=== PATIENT | male | born 1960 | race Asian ===

== ENCOUNTER 2018-03-18 18:39 | Emergency (ER) | payer SELFPAY ==
[~2018-03-18] VITALS: Ht 152.4 cm; Wt 61.2 kg
[2018-03-18] MEDS ORDERED: HYDROcodone-ACET 10/325MG TAB PO ONE (21:30)
[2018-03-18] MEDS ORDERED: cefTRIAXone SOD 1,000 MG VL IM ONE (22:00)
[2018-03-18] MEDS ORDERED: TETANUS-DIPTH-ACEL PERTUSSIS 0.5ML SYRG IM ONE (22:00)
[2018-03-18] MEDS ORDERED: BACITRACIN-POLYMYXIN B TOPICAL OINT UD TOP ONE (22:00)
[2018-03-18] MEDS ORDERED: LIDOCAINE 1% HCL (LOCAL ANESTH.) INJ 20ML MDV ONE (22:00)
[2018-03-18] MEDS ORDERED: AMOXICILLIN/CLAVUL 875 MG TAB PO ONE (22:00)
[2018-03-19] MEDS ORDERED: cloNIDine HCL 0.1 MG TAB PO ONE (00:45)
[2018-03-19 01:04] VITALS: BP 167/108
== END 2018-03-19 01:41 | disposition short-term general hospital (02) ==
LOC: ER 18:39
DX: S61.412A Laceration without foreign body of left hand, initial encounter (principal); W26.9XXA Contact with unspecified sharp object(s), initial encounter; Y93.89 Activity, other specified; Y99.8 Other external cause status; Y92.89 Other specified places as the place of occurrence of the external cause
CPT/HCPCS: 73130; 90715; 96372; 99285; J0696; J2001